=== PATIENT | male | born 1985 | race Caucasian/White ===

== ENCOUNTER 2017-02-09 16:30 | Emergency (ER) | payer SELFPAY ==
[~2017-02-09] VITALS: Ht 175.3 cm; Wt 80.0 kg
[~2017-02-09 16:30] MED LIST: PROM25SU8 PO; Z.0.NO CURRENT MEDS
[2017-02-09 16:31] VITALS: BP 176/106; PULSE 79; RESP 14; TEMP 97.9; O2SAT 98
== END 2017-02-09 17:00 | disposition left against medical advice (07) ==
LOC: NED 16:30
DX: R10.9 Unspecified abdominal pain (principal)
CPT/HCPCS: 99281